=== PATIENT | male | born 1940 | race Hispanic/Latino ===

== ENCOUNTER 2019-12-31 17:48 | Emergency (ER) | payer MEDICARE, OTHER ==
[~2019-12-31] VITALS: Ht 172.7 cm; Wt 97.5 kg
[~2019-12-31 17:48] MED LIST: AMLODIPINE-BEN1 EAC5 PO; CLONAZEPAM1 MG PO; GLIMEPIRIDE4 MG PO; JANUVIA100 MG PO; OMEPRAZOLE20 MG PO; PRAVASTATIN SOD20 MG PO
[2019-12-31] MEDS ORDERED: LIDOCAINE HCL 2% 30 ML TUBE TOP ONE (18:15)
[2019-12-31] MEDS ORDERED: ACETAMINOPHEN/CODEINE 300MG - 30MG TAB PO ONE (18:15)
[2020-01-01] MEDS ORDERED: NEOMYCIN/POLYMYX/BACITR OINT 0.9 GM PKT TOP SCH (09:00)
== END 2019-12-31 18:43 | disposition home or self-care (01) ==
LOC: ER 17:48
DX: T22.111A Burn of first degree of right forearm, initial encounter (principal); T23.161A Burn of first degree of back of right hand, initial encounter; X02.8XXA Other exposure to controlled fire in building or structure, initial encounter; Y92.008 Other place in unspecified non-institutional (private) residence as the place of occurrence of the external cause; I10 Essential (primary) hypertension; E11.9 Type 2 diabetes mellitus without complications; E78.5 Hyperlipidemia, unspecified; K21.9 Gastro-esophageal reflux disease without esophagitis
CPT/HCPCS: 99283

== ENCOUNTER 2022-03-29 16:22 | Emergency (ER) | payer MEDICARE, OTHER ==
[~2022-03-29] VITALS: Ht 172.7 cm; Wt 97.5 kg
[2022-03-29] MEDS ORDERED: SODIUM CHLORIDE 0.9% 500ML 500 ML IV ONE (16:45)
== END 2022-03-29 17:33 | disposition home or self-care (01) ==
LOC: ER 16:38
DX: U07.1 COVID-19 (principal); R05.9 Cough, unspecified; I10 Essential (primary) hypertension; E11.9 Type 2 diabetes mellitus without complications; E78.5 Hyperlipidemia, unspecified; E03.9 Hypothyroidism, unspecified; K21.9 Gastro-esophageal reflux disease without esophagitis; M54.9 Dorsalgia, unspecified; G89.29 Other chronic pain; Z96.653 Presence of artificial knee joint, bilateral; Z86.73 Personal history of transient ischemic attack (TIA), and cerebral infarction without residual deficits
CPT/HCPCS: 99283

== ENCOUNTER 2022-04-05 18:06 | Emergency (ER) | payer MEDICARE, OTHER ==
[~2022-04-05] VITALS: Ht 172.7 cm; Wt 97.5 kg
== END 2022-04-05 18:35 | disposition home or self-care (01) ==
LOC: ER 18:10
DX: R05.9 Cough, unspecified (principal); U07.1 COVID-19; I10 Essential (primary) hypertension; E11.9 Type 2 diabetes mellitus without complications; E03.9 Hypothyroidism, unspecified; K21.9 Gastro-esophageal reflux disease without esophagitis; E78.5 Hyperlipidemia, unspecified; M54.9 Dorsalgia, unspecified; G89.29 Other chronic pain; Z96.653 Presence of artificial knee joint, bilateral
CPT/HCPCS: 99282